=== PATIENT | male | born 1970 | race Two or more races ===

== ENCOUNTER 2017-04-02 14:40 | Inpatient (IN) | payer OTHER ==
[~2017-04-02] VITALS: Ht 180.3 cm; Wt 85.4 kg
[2017-04-02] MEDS ORDERED: Ondansetron 2 mg/mL 2 mL Inj ONE (14:54)
[2017-04-02] MEDS ORDERED: fentaNYL-PF 50 mCg/mL 2 mL Inj ONE (14:54)
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
[2017-04-02] MEDS ORDERED: fentaNYL-PF 50 mCg/mL 2 mL Inj IVPUSH PRN (15:00)
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
[2017-04-02] MEDS ORDERED: HYDROmorphone 1 mg/mL Inj IVPUSH PRN (16:45)
[2017-04-02] MEDS ORDERED: Ondansetron 2 mg/mL 2 mL Inj IVPUSH PRN (17:25)
[2017-04-02] MEDS ORDERED: Polyethylene Glycol (PEG) 17 Gm Powder PO PRN (17:25)
[2017-04-02 18:11] LABS: BASOPHILS % (AUTO) 0 % (0-3); EOSINOPHILS % (AUTO) 0 % (0-5); MONOCYTES % (AUTO) 4 % (4-12); Mean Corpuscular Volume 80 fL (81-100); NEUTROPHILS % (AUTO) 91 % (40-74); Platelet Count 278 bil/L (150-400)
[2017-04-02 18:38] VITALS: BP 119/76; PULSE 77; RESP 18; O2SAT 100
--- NOTE | 2017-04-02 18:41 | NUR ---
Admit nurse note Admission assessment completed. Pt. c/o 01/23 pain but winces every time he moves. Pt. oriented to room, call lopez and fall precautions as well as pain medication. Friends are at the bedside and intermittently translate information, but for the most part pt. speaks Niuean well enough to answer admission history, and states he would prefer his information printed in Niuean. Pt. declines strickler attendant at present but is informed about automotive finance manager services provided and offered here. Allergies updated and sticker placed on name band. Med history obtained. Report given to Kassidy Calix.
[2017-04-02] MEDS: KCL IV SCH (18:44)
[2017-04-02] MEDS: NACL IV SCH (18:44)
[2017-04-02] MEDS: [UNRECOGNIZED DRUG - OTHER] IV SCH (18:44)
[2017-04-02 20:55] VITALS: BP 110/66; PULSE 72; RESP 20; O2SAT 96
[2017-04-02] MEDS: HYDROmorphone 1 mg/mL Inj IVPUSH PRN (21:04)
[2017-04-03] VITALS (19 sets, daily range): BP systolic 111–144; BP diastolic 66–88; PULSE 66–95; RESP 12–20; O2SAT 93–99
[2017-04-03] MEDS: HYDROmorphone 1 mg/mL Inj IVPUSH PRN ×6 (00:58→17:12)
--- NOTE | 2017-04-03 03:01 | NUR ---
Pain IV Dilaudid given for pain about a 05/25. Pt. fell asleep soon afterwards. Pt. educated on being NPO after midnight. Will continue to monitor.
[2017-04-03] MEDS: [UNRECOGNIZED DRUG - OTHER] IV SCH ×2 (04:13→12:55)
[2017-04-03] MEDS: KCL IV SCH ×2 (04:13→12:55)
[2017-04-03] MEDS: NACL IV SCH ×2 (04:13→12:55)
[2017-04-03 06:15] LABS: BASOPHILS % (AUTO) 0.2 % (0-3); EOSINOPHILS % (AUTO) 0.6 % (0-5); MONOCYTES % (AUTO) 9.6 % (4-12); Mean Corpuscular Hemoglobin 28.4 pg (27.0-35.0); Mean Corpuscular Volume 83.4 fL (81-100); NEUTROPHILS % (AUTO) 75.1 % (40-74); Platelet Count 216 bil/L (150-400)
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
[2017-04-03] MEDS ORDERED: Ondansetron 2 mg/mL 2 mL Inj ONE (08:00)
[2017-04-03] MEDS ORDERED: fentaNYL-PF 50 mCg/mL 2 mL Inj ONE (08:00)
[2017-04-03] MEDS ORDERED: Rocuronium 10 mg/mL 5 mL Inj ONE (08:00)
[2017-04-03] MEDS ORDERED: HYDROmorphone 2 mg/mL Inj ONE (08:00)
[2017-04-03] MEDS ORDERED: Dexamethasone 4 mg/mL Inj ONE (08:00)
[2017-04-03] MEDS ORDERED: Propofol 10,000 mCg/mL 20 mL Inj ONE (08:00)
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
--- NOTE | 2017-04-03 18:02 | NUR ---
Pain Patient continues to have some pain to the left lower extremity this shift, treated with ordered pain medications which patient states keeps pain at a tolerable level. Patient denies any numbness or tingling of left lower extremity, with intact motion, sensation and brisk capillary refill. Care is ongoing.
[2017-04-03] MEDS ORDERED: Lactated Ringer's 1,000 ML IV ONE (18:11)
[2017-04-03] MEDS ORDERED: MetoCLOpramide 5 mg/mL 2 mL Inj IVPUSH PRN (19:05)
[2017-04-03] MEDS ORDERED: Lactated Ringer's 1,000 ML IV SCH (19:05)
[2017-04-03] MEDS ORDERED: HYDROmorphone 1 mg/mL Inj IVPUSH PRN (19:05)
[2017-04-03] MEDS ORDERED: Phenylephrine 10,000 mCg/mL Inj IVPUSH PRN (19:05)
[2017-04-03] MEDS ORDERED: fentaNYL-PF 50 mCg/mL 2 mL Inj IVPUSH PRN (19:05)
[2017-04-03] MEDS ORDERED: Dexamethasone 4 mg/mL Inj IVPUSH PRN (19:05)
[2017-04-03] MEDS ORDERED: Atropine 0.4 mg/mL Inj IVPUSH PRN (19:05)
[2017-04-03] MEDS ORDERED: Labetalol 5 mg/mL 4 mL Inj IV PRN (19:05)
[2017-04-03] MEDS ORDERED: Lactated Ringer's 500 ML IV PRN (19:05)
[2017-04-03] MEDS ORDERED: Ondansetron 2 mg/mL 2 mL Inj IVPUSH PRN ×2 (19:05→20:55)
[2017-04-03] MEDS ORDERED: EPHEDrine Sulfate 50 mg/mL Inj IVPUSH PRN (19:05)
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
[2017-04-03] MEDS ORDERED: diphenhydrAMINE 25 mg Capsule PO PRN (20:55)
[2017-04-03] MEDS ORDERED: Magnesium Hydroxide 10 mL Oral Concentration PO PRN (20:55)
[2017-04-03] MEDS ORDERED: Sodium Biphos-Phos 133 mL Enema RECTAL PRN (20:55)
[2017-04-03] MEDS ORDERED: Polyethylene Glycol (PEG) 17 Gm Powder PO PRN (20:55)
--- NOTE | 2017-04-03 21:08 | DRSVH ---
PROCEDURE: X-RAY LEFT TIBIA/FIBULA, TWO VIEWS ([id number]) INDICATIONS: TIBIAL NAIL TECHNIQUE: 2 views of the tibia and fibula were acquired. COMPARISON: None. FINDINGS: Bones: Postsurgical changes compatible with ORIF of proximal tibia fracture noted. There is near-an atomic alignment following placement of intramedullary maurizio with 3 proximal and 2 distal interlocking screws. Soft tissues: No suspicious soft tissue calcifications or masses. IMPRESSION: Near-anatomic alignment following ORIF of proximal tibia fracture. Dictated by: Cecile Schumacher MD, PhD on 04/03/2017 at 21:06 Approved by: Cecile Schumacher MD, PhD on 04/03/2017 at 21:07
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
--- NOTE | 2017-04-03 22:15 | DRSVH ---
PROCEDURE: X-RAY LEFT TIBIA/FIBULA, TWO VIEWS ([id number]) INDICATIONS: post op TECHNIQUE: 2 views of the tibia and fibula were acquired. COMPARISON: [facility], CR, XR TIBIA FIBULA 2VW LT, 04/02/2017, 14:45. [facility], CR, XR TIBIA FIBULA 2VW LT, 04/03/2017, 18:55. FINDINGS: Bones: Postsurgical changes compatible with ORIF of comminuted proximal tibia fracture noted. Commi nuted proximal fibular fracture is stable compared to 04/02/17. Soft tissues: No suspicious soft tissue calcifications or masses. IMPRESSION: Expected postsurgical change for ORIF of proximal tibia fracture. Dictated by: Cecile Schumacher MD, PhD on 04/03/2017 at 22:13 Approved by: Cecile Schumacher MD, PhD on 04/03/2017 at 22:14
--- NOTE | 2017-04-03 22:50 | PCM.ANEP1 ---
Post Anesthesia PACU Phase 1 Assessment Vital Signs Vital Signs Date Time Temp Pulse Resp B/P Pulse Ox O2 Delivery O2 Flow Rate FiO2 04/03/17 22:25 37.0 81 16 135/80 97 Room Air 04/03/17 22:15 95 13 131/81 96 Nasal Cannula 2 04/03/17 22:10 83 13 124/78 93 Nasal Cannula 2 04/03/17 22:05 84 13 127/82 93 Nasal Cannula 2 04/03/17 22:00 85 13 124/79 93 Nasal Cannula 2 04/03/17 21:55 85 13 135/83 96 Room Air 04/03/17 21:50 90 12 138/88 95 Room Air 04/03/17 21:45 82 12 139/88 99 Simple Mask 8 04/03/17 21:40 79 12 136/83 99 Simple Mask 8 04/03/17 21:35 79 13 144/82 99 Simple Mask 8 04/03/17 21:30 82 14 143/80 99 Simple Mask 8 04/03/17 21:25 85 12 141/85 99 Simple Mask 8 04/03/17 21:20 81 15 134/86 99 Simple Mask 8 04/03/17 21:15 37.6 90 16 132/86 99 Simple Mask 8 04/03/17 20:13 Anesthetic Administered: GA Level of Alertness: Sleepy, easy to arouse MIRAMONTES's with Equal Strength: Yes Pain: No Pain Scale Score: 1 Nausea or Vomiting: No CV Function and Hydration: Yes Airway Device: Endotrachial Tube Oxygen Delivery: Room Air Lungs: Clear to Auscultation, Normal Air Movement Dermatome Level: Full Sensation PACU Phase 2 Assessment Complications: No Follow up Care: N/A Patient Instructions Provided: Yes Darryl Adams MD April 03, 2017 22:50
--- NOTE | 2017-04-03 23:23 | NUR ---
Post Op Pt. back on floor from OR at 2226. Pt. was sleepy, but oriented. Pt.'s peripheral IV intact and patent. Pt. denies pain at this time. Family in room. Will continue to monitor.
[2017-04-04] MEDS: Sodium Chloride LOK Flush 10 mL Syringe IV SCH ×4 (00:03→23:42)
[2017-04-04] MEDS: CeFAZolin Inj 1 GM in IV Premix 1 EACH IV SCH ×2 (02:38→10:17)
[2017-04-04] MEDS: NACL IV SCH ×3 (05:21→17:53)
[2017-04-04] MEDS: [UNRECOGNIZED DRUG - OTHER] IV SCH ×3 (05:21→17:53)
[2017-04-04] MEDS: KCL IV SCH ×3 (05:21→17:53)
[2017-04-04 05:57] VITALS: BP 125/74; PULSE 75; RESP 16; O2SAT 95
[2017-04-04 06:19] LABS: BASOPHILS % (AUTO) 0.1 % (0-3); EOSINOPHILS % (AUTO) 0 % (0-5); MONOCYTES % (AUTO) 8.9 % (4-12); Mean Corpuscular Hemoglobin 28.6 pg (27.0-35.0); Mean Corpuscular Volume 83.8 fL (81-100); NEUTROPHILS % (AUTO) 83.8 % (40-74); Platelet Count 199 bil/L (150-400)
[2017-04-04 08:30] VITALS: BP 114/70; PULSE 86; RESP 16; O2SAT 97
[2017-04-04] MEDS: Senna-Docusate 8.6-50 mg Tablet PO SCH ×2 (08:36→19:52)
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
--- NOTE | 2017-04-04 09:39 | PCM.PNORTH ---
Subjective Date of Service: April 04, 2017 Visit Information: Reason for Visit Tib Fib Tx Surgery/Surgery Date Post-Op Day # Date of Admission: April 02, 2017 at 17:58 Hospital Day # Subjective Found patient awake and alert this morning and sitting up in bed. No complaints of pain at this time. Discussed discharge today and patient is in favor of this. Discussed participation with formal physical therapy today and crutch training prior to discharge. Advised patient regarding his weightbearing status and postop activities. Postop General: No Complaints, No Shortness of Breath, No Chest Pain, Good Appetite Pain Management: PO, IV Push Objective Exam Objective Alert and oriented 3 and pleasant. Interoperative dressing is clean dry and intact. Calf and thigh soft and nontender. Toe wiggle and sensation are intact at left lower extremity distally Fracture walker is in place. Mcintosh is absent. No gait yet as of this note. Vital Signs and I/O Vital Sign - Last Date Time Temp Pulse Resp B/P Pulse Ox O2 Delivery O2 Flow Rate FiO2 04/04/17 08:30 37.1 86 16 114/70 97 Room Air 04/03/17 22:15 2 Intake and Output 04/03/17 04/03/17 04/04/17 Cumulative From/Thru 15:00 23:00 07:00 04/02/17 18:41 - 04/04/17 05:57 Intake Total 1200 ml 1078 ml 3314 ml Output Total 0 ml 800 ml Balance 1200 ml 1078 ml 2514 ml Intake Oral 400 ml 400 ml IV Total 1200 ml 678 ml 2914 ml Output Urine Total 0 ml 800 ml # Bowel Movements 0 0 Lab & Micro Results Laboratory Tests Test 04/04/17 05:55 White Blood Count 11.3th/mm3 (3.8-10.1) Red Blood Count 4.26mil/mm3 (4.40-5.80) Hemoglobin 12.2g/dL (13.8-17.2) Hematocrit 35.7% (41.0-50.0) Mean Corpuscular Volume 83.8fL (81-100) Mean Corpuscular Hemoglobin 28.6pg (27.0-35.0) Mean Corpuscular Hemoglobin Concent 34.2% (32.0-37.0) Red Cell Distribution Width 12.9% (12.3-15.4) Platelet Count 199bil/L (150-400) Neutrophils (%) (Auto) 83.8% (40-74) Lymphocytes (%) (Auto) 6.9% (14-46) Monocytes (%) (Auto) 8.9% (4-12) Eosinophils (%) (Auto) 0% (0-5) Basophils (%) (Auto) 0.1% (0-3) Result Diagram: 04/04/17 0555 04/02/17 1454 General Appearance: Alert, Oriented X3, Cooperative, No Acute Distress Extremities: No Compartment Syndrom Noted, Thigh & Calf Soft/Nontender Postop Sensory Motor: Distal Motor Intact, Movement in Toes, Distal Sensation Intact Activity: Activity per PT, Ambulate with PT (weightbearing as tolerated on the left lower extremity using bilateral axillary crutches and left fracture walker) Catheters: None Assessment & Plan Impression Patient is a 46-year-old male who was undergone a left tibial IM maurizio placement on 04/03/[address] Chaz Vasquez. Problems: Plan Postop day #1 from right tibial IM nail placement on 04/03/[address] Chaz vasquez. Weightbearing as tolerated on the left lower extremity using bilateral axillary crutches and fracture boot. Continue formal physical therapy for mobility, gait and safety with crutch training. Continue Percocet 7.5 every 4-6 hours when necessary pain. Home medication Rx in chart. Nursing move patient by mouth Percocet 7.5 as soon as possible today. Ice and elevate as much as possible when not upright. Keep dressing clean dry and intact until seen in office in 2 weeks. Orthopedics thanks hospitalist service for their help with the medical management of this patient. Follow-up in 2 weeks at [facility] orthopedic clinic with Quinten Castaneda PA-C, for staple removal and wound check. Discharge patient to home today with family as caregivers on 04/04/2017 after 1 or 2 sessions of physical therapy. Quinten Castaneda PA-C April 04, 2017 09:39
--- NOTE | 2017-04-04 09:43 | PCM.DIORTH ---
Ortho Discharge Instruction Date of Service: April 04, 2017 Dates of Hospitalization Date of Hospital Admission April 02, 2017 at 17:58 Providers Admitting Physician: Miquel Cruz MD Primary Care Physician: Noprhea Attending Physician: Miquel Cruz MD Diet Discharge Diet: No restrictions Activity Discharge Activity-General: Try not to overdue, Be up and about, Balance rest and activity, Ice incision 3-5 time/day for 20min, Activity as pain allows, Activity as energy allows, No driving while taking narcotic Left Lower Extremity: Weight Bearing as tolerated Discharge Assist Device: Crutches (bilateral axillary crutches) Dressing and Incisional Care Discharge Dressing Care: Keep dressing clean, dry & intact Discharge Hygiene: May shower after (patient may shower if left leg is and dressing is kept clean dry and intact.), DO NOT soak incision under water, NO bathtub, hot tub or whirlpool Additional Instructions Discharge Instructions Postop day #1 from right tibial IM nail placement on 04/03/[address] Chaz vasquez. Weightbearing as tolerated on the left lower extremity using bilateral axillary crutches and fracture boot. Continue formal physical therapy for mobility, gait and safety with crutch training. Continue Percocet 7.5 every 4-6 hours when necessary pain. Home medication Rx in chart. Nursing move patient by mouth Percocet 7.5 as soon as possible today. Ice and elevate as much as possible when not upright. Keep dressing clean dry and intact until seen in office in 2 weeks. Orthopedics thanks hospitalist service for their help with the medical management of this patient. Follow-up in 2 weeks at [facility] orthopedic clinic with Quinten Castaneda PA-C, for staple removal and wound check. Discharge patient to home today with family as caregivers on 04/04/2017 after 1 or 2 sessions of physical therapy. Follow Up Plan Follow Up Plan Patient will be seen at 2 weeks, 6 weeks and 12 weeks postoperatively. Patient was seen when necessary in the interim. Follow-up Provider (F9): Chaz Vasquez DO Mid-level Provider (F9): Quinten Castaneda PA-C Follow-up appointment: Weeks (follow-up in 2 weeks at [facility] orthopedic clinic for staple removal and wound check with LAKIA Castaneda) Call your provider for: Fever, Chills, Shortness of breath, Vomitting, Drainage at incision Quinten Castaneda PA-C April 04, 2017 09:43
[2017-04-04] MEDS ORDERED: CRUT1EAC36 MC (09:46)
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
--- NOTE | 2017-04-04 10:40 | NUR ---
Evaluation completed. Please go to "Notes" then click on "Assessments and Notes" (bottom left corner of screen). Then select appropriate discipline tab on top of screen.
[2017-04-04 13:32] VITALS: BP 125/77; PULSE 82; RESP 16; O2SAT 93
[2017-04-04] MEDS: HYDROmorphone 1 mg/mL Inj IVPUSH PRN (14:17)
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
[2017-04-04 16:30] VITALS: BP 129/68; PULSE 82; RESP 18; O2SAT 96
--- NOTE | 2017-04-04 18:09 | NUR ---
Pain Pt. has been c/o 8 out of 10 pain when working with PT. States his pain is from his left knee down to his left maldonado. Roxicodone 10mg given throughout shift q4hr PO PRN as well as morphine PRN IV push once and dilaudid IV PRN push once for break through pain. Pt. at this time states his pain level is back down to a 4/10 as of now. Will continue to monitor.
[2017-04-04] MEDS: oxyCODONE-Acetamin 10-325 mg Tablet PO PRN (19:52)
[2017-04-04 20:09] VITALS: BP 135/75; PULSE 86; RESP 18; O2SAT 98
--- NOTE | 2017-04-05 04:19 | NUR ---
Pain Pt c/o LT leg 06/25 pain and was given Percocet 10/352mg. Percocet was not helpful per Pt, so he was given Tylenol 650mg about 30 mins later and still no relief. Pt given Oxycodone 5mg and had some relief, but continued with pain. Spoke with Dr. Granger and he advised to loosen the puja wrap and boot and place ice packs on his Lt leg. He also ordered Ibuprofen 600mg tid for pain. Ibuprofen given for pain 01/23. Pt stated good effect with new pain management. Pt able to move toes and denies numbness, tingling, and burning. Care ongoing.
[2017-04-05] MEDS: [UNRECOGNIZED DRUG - OTHER] IV SCH ×2 (05:30→15:30)
[2017-04-05] MEDS: KCL IV SCH ×2 (05:30→15:30)
[2017-04-05] MEDS: NACL IV SCH ×2 (05:30→15:30)
--- NOTE | 2017-04-05 06:28 | PCM.PNORTH ---
Subjective Date of Service: April 05, 2017 Visit Information: Reason for Visit Tib Fib Tx Surgery/Surgery Date Post-Op Day # Date of Admission: April 02, 2017 at 17:58 Hospital Day # Subjective Outpatient sleepiness morning sitting up in bed. Easily awakened. Patient indicates he is less painful as morning after his nurse spoke with Dr. Vasquez last night and subsequently loosened his Tad wrap and fracture walker boot. Encouraged patient to work with formal physical therapy today and he indicates that he is "afraid" to pursue gait on his left leg. Postop General: No Complaints, No Shortness of Breath, No Chest Pain, Good Appetite Pain Management: PO Objective Exam Objective Alert and oriented 3 and pleasant. Found patient well-positioned with leg slightly elevated and 4 ice bags about the left knee. Interoperative dressing is clean dry and intact and has been loosened by nursing at the direction of Dr. Chaz Vasquez. Toe wiggle and sensation are intact at left lower extremity distally. Calf and thigh are soft and nontender. Mcintosh is absent. Treatment time was less than 10 feet with physical therapy yesterday on 2016. Vital Signs and I/O Vital Sign - Last Date Time Temp Pulse Resp B/P Pulse Ox O2 Delivery O2 Flow Rate FiO2 04/04/17 20:09 37.0 86 18 135/75 98 Room Air 04/03/17 22:15 2 Intake and Output 04/04/17 04/04/17 04/05/17 Cumulative From/Thru 15:00 23:00 07:00 04/02/17 18:41 - 04/04/17 21:40 Intake Total 2425 ml 5739 ml Output Total 2190 ml 2990 ml Balance 235 ml 2749 ml Intake Oral 1400 ml 1800 ml IV Total 1025 ml 3939 ml Output Urine Total 2190 ml 2990 ml # Bowel Movements 0 0 Result Diagram: 04/04/17 0555 04/02/17 1454 General Appearance: Alert, Oriented X3, Cooperative, No Acute Distress Extremities: No Compartment Syndrom Noted, Thigh & Calf Soft/Nontender Postop Sensory Motor: Distal Motor Intact, Movement in Toes, Distal Sensation Intact Activity: Activity per PT, Ambulate with PT (weightbearing as tolerated on the left lower extremity using bilateral axillary crutches and left fracture walker) Catheters: None Assessment & Plan Impression Patient is a 46-year-old male whom has undergone a left tibial IM maurizio and was unable to be discharged on 04/04/2017 as anticipated secondary to poor performance with physical therapy secondary to pain. Problems: (1) Tibia/fibula fracture Qualifiers: Encounter type: initial encounter Fracture type: closed Laterality: right Qualified Code: S82.201A - Unspecified fracture of shaft of right tibia , initial encounter for closed fracture Status: Acute ICD Code: S82.209A Plan Postop day #2 from right tibial IM nail placement on 04/03/[address] Chaz vasquez. Weightbearing as tolerated on the left lower extremity using bilateral axillary crutches and fracture boot. Continue formal physical therapy for mobility, gait and safety with crutch training. Continue Percocet 10 every 4-6 hours when necessary pain. Continue ibuprofen as ordered by Dr. Chaz Vasquez. Home medication Rx in chart. Nursing please avoid IV pain medications. Fracture walker boot and interoperative bandage and Tad wraps have been loosened by nursing per Dr. Vasquez. This has resulted in reduced discomfort for patient. Ice and elevate as much as possible when not upright. Keep dressing clean dry and intact until seen in office in 2 weeks. Orthopedics thanks hospitalist service for their help with the medical management of this patient. Follow-up in 2 weeks at [facility] orthopedic clinic with Quinten Castaneda PA-C, for staple removal and wound check. Discharge was attempted on 04/04/2017 and this was held secondary to poor performance with physical therapy secondary to pain and recommendation to suspend discharged to home on that date. We will monitor patient today for improvement in mobility and safety which would allow discharge. VTE Prophylaxis: SCDs, Other (ASA 325 mg EC by mouth twice a day 6 weeks postop for DVT prophylaxis) Quinten Castaneda PA-C April 05, 2017 06:28
[2017-04-05 06:30] VITALS: BP 116/69; PULSE 70; RESP 20; O2SAT 96
[2017-04-05] MEDS: Senna-Docusate 8.6-50 mg Tablet PO SCH ×2 (07:57→20:08)
[2017-04-05] MEDS: Sodium Chloride LOK Flush 10 mL Syringe IV SCH ×2 (07:57→17:42)
[2017-04-05] MEDS: oxyCODONE-Acetamin 10-325 mg Tablet PO PRN ×2 (07:57→20:09)
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
--- NOTE | 2017-04-05 11:06 | NUR ---
Social Work Note: Readiness for Discharge Data& Assessment: Per MD pt is getting medically closer to being ready for discharge. JULIAN met with pt and pt family at bedside to confirm discharge plan and assess for any unmet needs. Per PT, pt will require crutches at time of discharge. JULIAN provided pt and pt family with DME company list. Pt family explained they could be discharged today. JULIAN called [facility] and [employer] in [place] to inquire about crutches sizes available and pricing. JULIAN typed, printed and provided this information to pt family for options in regard to obtaining crutches on a Thursday when all DME companies are closed. Pt family appreciative and explained they will stop by one of the pharmacies prior to returning to [place]. Pt family denies any other needs at this time. SW to continue to follow if any other needs arise. Plan: Anticipated discharge home with family via POV when medically ready. Pt family plans to obtain crutches privately. Pt family denies any other needs at this time. SW to continue to follow if any other needs arise. KYLAH Bernard
[2017-04-05 11:30] VITALS: BP_SYST 104; BP_SYST 122; BP_DIAS 61; BP_DIAS 70
[2017-04-05] MEDS ORDERED: 0.9% Sodium Chloride 1,000 ML IV ONE (11:30)
[2017-04-05 13:36] VITALS: BP 116/65; PULSE 82; RESP 17; O2SAT 97
--- NOTE | 2017-04-05 15:43 | NUR ---
Hypotension While PT was working with pt he has symptoms of orthostatic hypotension. Pt became lightheaded. pale and sweaty upon standing with FWW with PT. Pt was sat back down. BP 122/62. upon rising again BP 104/70. notified. 1L NS bolus ordered and given. Pt has since transferred to [facility] with no issues. Encouraged pt to increase PO intake. Will continue to monitor.
--- NOTE | 2017-04-05 19:27 | NUR ---
Patient up to bedside commode with one person assist with gait belt and front wheeled walker. Patient had no complaints of dizziness or light headedness, was assisted back to bed by staff when finished. Addendum: 04/05/17 at 1928 by CONRAD ACEVEDO CNA Amended: Links added.
[2017-04-05 20:30] VITALS: BP 122/73; PULSE 89; RESP 18; O2SAT 98
--- NOTE | 2017-04-06 00:49 | NUR ---
Pain Patient states pain level fluctuates up and down from 4-6/10. Percocet and Roxycodone given for pain. Patient A&OX3. Tolerating oral fluids and food without any nausea. Vitals stable. Patient resting quietly in bed.
[2017-04-06] MEDS: Sodium Chloride LOK Flush 10 mL Syringe IV SCH ×2 (01:13→08:31)
[2017-04-06] MEDS: NACL IV SCH ×2 (01:30→11:30)
[2017-04-06] MEDS: [UNRECOGNIZED DRUG - OTHER] IV SCH ×2 (01:30→11:30)
[2017-04-06] MEDS: KCL IV SCH ×2 (01:30→11:30)
[2017-04-06 06:25] VITALS: BP 126/68; PULSE 78; RESP 16; O2SAT 97
[2017-04-06 06:32] LABS: Mean Corpuscular Hemoglobin 28.4 pg (27.0-35.0); Mean Corpuscular Volume 84.3 fL (81-100)
[2017-04-06 06:33] LABS: BASOPHILS % (AUTO) 0.3 % (0-3); EOSINOPHILS % (AUTO) 3.4 % (0-5); MONOCYTES % (AUTO) 10.4 % (4-12); NEUTROPHILS % (AUTO) 66.4 % (40-74); Platelet Count 197 bil/L (150-400)
[2017-04-06 08:25] VITALS: BP 125/75; PULSE 85; RESP 18; O2SAT 97
[2017-04-06] MEDS: Senna-Docusate 8.6-50 mg Tablet PO SCH (08:29)
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
[2017-04-06] MEDS ORDERED: OXYC-465 PO (09:59)
[2017-04-06] MEDS ORDERED: ASPI325T32 PO (09:59)
[2017-04-06] MEDS ORDERED: DOCU-41 PO (09:59)
--- NOTE | 2017-04-06 10:37 | PCM.PNORTH ---
Subjective Date of Service: April 06, 2017 Visit Information: Reason for Visit Tib Fib Tx Surgery/Surgery Date Post-Op Day # Date of Admission: April 02, 2017 at 17:58 Hospital Day # Subjective Palpation awake alert this morning sitting up in bed. No complaints of pain. Discussed his discharge likely today by hospitalist service to home with family' s caregivers. We have also discussed formal physical therapy which will take place in [place] due to this being closest to his home. I advised patient that I written a formal physical therapy prescription for him and placed this in his chart. We have also discussed that we would like to see patient back in 2 weeks at our office and then if he wishes to transfer care to another orthopedic doctor in [place] we can help him facilitate this. Patient is concerned with trial to our office being a significant distance from home. Postop General: No Complaints, No Shortness of Breath, No Chest Pain, Good Appetite Pain Management: PO Objective Exam Objective Alert and oriented 3 and pleasant. Interoperative dressing remains clean dry and intact with fracture boot intact. Calf and thigh are soft and nontender. Toe wiggle and sensation are intact at left lower extremity distally. Gait 50 feet with physical therapy on 04/06/2017 with clearance for discharge to home with outpatient PT Vital Signs and I/O Vital Sign - Last Date Time Temp Pulse Resp B/P Pulse Ox O2 Delivery O2 Flow Rate FiO2 04/06/17 09:54 Room Air 04/06/17 08:25 36.9 85 18 125/75 97 04/03/17 22:15 2 Intake and Output 04/05/17 04/05/17 04/06/17 Cumulative From/Thru 15:00 23:00 07:00 04/02/17 18:41 - 04/06/17 06:25 Intake Total 1900 ml 850 ml 9164 ml Output Total 1800 ml 700 ml 6660 ml Balance 100 ml 150 ml 2504 ml Intake Oral 900 ml 850 ml 4225 ml IV Total 1000 ml 4939 ml Output Urine Total 1800 ml 700 ml 6660 ml # Bowel Movements 1 0 1 Lab & Micro Results Laboratory Tests Test 04/06/17 05:32 White Blood Count 8.8th/mm3 (3.8-10.1) Red Blood Count 3.94mil/mm3 (4.40-5.80) Hemoglobin 11.2g/dL (13.8-17.2) Hematocrit 33.2% (41.0-50.0) Mean Corpuscular Volume 84.3fL (81-100) Mean Corpuscular Hemoglobin 28.4pg (27.0-35.0) Mean Corpuscular Hemoglobin Concent 33.7% (32.0-37.0) Red Cell Distribution Width 12.6% (12.3-15.4) Platelet Count 197bil/L (150-400) Neutrophils (%) (Auto) 66.4% (40-74) Lymphocytes (%) (Auto) 19.3% (14-46) Monocytes (%) (Auto) 10.4% (4-12) Eosinophils (%) (Auto) 3.4% (0-5) Basophils (%) (Auto) 0.3% (0-3) Result Diagram: 04/06/17 0532 04/02/17 1454 General Appearance: Alert, Oriented X3, Cooperative, No Acute Distress Extremities: No Compartment Syndrom Noted, Thigh & Calf Soft/Nontender Postop Sensory Motor: Distal Motor Intact, Movement in Toes, Distal Sensation Intact Activity: Activity per PT, Ambulate with PT (weightbearing as tolerated on the left lower extremity using bilateral axillary crutches and left fracture walker) Catheters: None Assessment & Plan Impression Patient is postop day #3 from left tibial IM nail placement on 04/03/2017. Patient has increased his activity and mobility with physical therapy and has received recommendation or discharge. Problems: (1) Tibia/fibula fracture Qualifiers: Encounter type: initial encounter Fracture type: closed Laterality: right Qualified Code: S82.201A - Unspecified fracture of shaft of right tibia , initial encounter for closed fracture Status: Acute ICD Code: S82.209A Plan Postop day #3 from right tibial IM nail placement on 04/03/[address] Chaz vasquez. Weightbearing as tolerated on the left lower extremity using bilateral axillary crutches and fracture boot. Continue formal physical therapy for mobility, gait and safety with crutch training. Outpatient physical therapy has been ordered and hard copy is placed in chart Continue Percocet 7.5 every 4-6 hours when necessary pain. Continue ibuprofen as ordered by Dr. Chaz Vasquez. Home medication Rx in chart. Continue ASA 325 mg EC by mouth twice a day 6 weeks postop for DVT prophylaxis. Home medication Rx in chart Fracture walker boot and interoperative bandage and Tad wraps have been loosened by nursing per Dr. Vasquez. This has resulted in reduced discomfort for patient. Ice and elevate as much as possible when not upright. Keep dressing clean dry and intact until seen in office in 2 weeks. Orthopedics thanks hospitalist service for their help with the medical management of this patient. Follow-up in 2 weeks at [facility] orthopedic clinic with Quinten Castaneda PA-C, for staple removal and wound check. Orthopedics will sign off on this patient at this time but as always we will remain available for consultation and treatment as needed. Discharge was attempted on 04/04/2017 and this was held secondary to poor performance with physical therapy secondary to pain and recommendation to suspend discharged to home on that date. Anticipated discharge to home with family as caregivers and outpatient physical therapy today on postop day #3, 04/06/2017 by hospitalist service. VTE Prophylaxis: SCDs, Other (ASA 325 mg EC by mouth twice a day 6 weeks postop for DVT prophylaxis) Quinten Castaneda PA-C April 06, 2017 10:37
--- NOTE | 2017-04-06 11:13 | NUR ---
Social Work: Discharge D: EMR reviewed. Pt is on day 4 of hospitalization. Per PT notes, pt ambulated 40-50 ft with FWW. Pt purchased crutches and FWW 04/05. Pt lives in [place] and will discharge home today with spouse via POV. PT recommends outpt PT and HH. Surgeon recommends outpt PT. Pt confirmed he will schedule outpt PT at [address] SW does not anticipate any discharge needs at this time but will continue to follow if needs arise. A: Pt who is independent at baseline. P: Pt to discharge home with spouse via POV. Pt to schedule outpt PT at [address] in [place]. SW does not anticipate any discharge needs at this time but will continue to follow if needs arise. KYLAH Tracy
[2017-04-06] MEDS: oxyCODONE-Acetamin 10-325 mg Tablet PO PRN (11:48)
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
--- NOTE | 2017-04-06 14:50 | NUR ---
Discharge Pt DC home via private vehicle with to [facility]. Confirmed pt will call to schedule 2 week follow up with Quinten at the [facility] but find a PT clinic in [facility] for home PT. Pain well controlled with Motrin and Percocet. Pt walked in french x 2 today and successfully navigated stairs. Ortho checks WNL. Pt has FWW and crutches for home use.
== END 2017-04-06 14:53 | disposition home or self-care (01) | DRG 494 ==
LOC: SED 14:40 → OSC 17:58
PROVIDERS: ADMIT Internal Medicine; ATTEND Internal Medicine
PROC: 0QSH36Z Reposition Left Tibia with Intramedullary Internal Fixation Device, Percutaneous Approach (ICD-10-PCS; principal; 2017-04-03 17:30)
DX: S82.222A Displaced transverse fracture of shaft of left tibia, initial encounter for closed fracture (principal); S82.452A Displaced comminuted fracture of shaft of left fibula, initial encounter for closed fracture; V22.4XXA Motorcycle driver injured in collision with two- or three-wheeled motor vehicle in traffic accident, initial encounter